=== PATIENT | male | born 1955 | race Caucasian/White ===

== ENCOUNTER → 2017-02-04 | Outpatient (CLI) | payer BC ==
[~2017-02-04] MED LIST: PERFLUTREN LIPID MICROSPHERE (DEFINITY) IV ONE
--- NOTE | 2017-02-04 15:56 | EXERCISE STRESS ECHO ---
*NOTICE TO RECEIVING REPUBLICAN AGENCY This information is strictly Confidential and protected under [place] law. [place] law prohibits you from making any further disclosure of this information unless further disclosure is expressly permitted by the written consent of the person to whom it pertains or is authorized by law. A general authorization for the release of medical or other information is not sufficient for this purpose. Hospital accepts no responsibility if the information is made available to any other person, INCLUDING THE PATIENT. Interpretation Summary * Name: EMMY ADDISON Study Date: 02/04/2017 01:50 PM BP: 154/93 mmHg * Patient Location: [facility] HR: 70 * : 1955 (M/d/yyyy) Gender: Male Height: 69 in * Age: 61 yrs Ethnicity: CA Weight: 200 lb * Ordering Physician: Raymundo Argueta * Referring Physician: Raymundo Argueta D.O. * Performed By: Radha Damon RDCS * * Reason For Study: DYSPNEA ON EXERTION * BSA: 2.1 m2 * -- Conclusions -- * 1. Normal stress echocardiogram at 12.3 METSand a peak heart rate of 85% maximum predicted * 2. No exercise-induced chest pain. * 3. No EKG changes. * 4. Baseline echocardiogram notes normal left ventricular systolic function and no significant valvular pathology. Procedure Details * A contrast injection of Definity was performed to improve assessment of LV function. * Contrast was injected into an intravenous site in the right arm. * One vial of Definity ultrasound contrast was diluted in normal saline to a total volume of 10 ml. A total of '4' ml of solution was administered during imaging. * Lot # [id number] of Definity utilized for procedure. * Expiration date MAR 07. * The attending nurse who injected the contrast agent was LALIT STONE RN. Left Ventricle * The left ventricle is normal in size. * There is borderline concentric left ventricular hypertrophy. * Ejection Fraction = 60-65%. * Left ventricular systolic function is normal. * Resting wall motion: Normal. Stress wall motion: Appropriate increase in Left ventricular systolic function and decrease in cavity size. No stress induced segmental wall motion abnormalities. Right Ventricle * The right ventricle is grossly normal size. * The right ventricular systolic function is normal as assessed by tricuspid annular plane systolic excursion (TAPSE) (normal >1.5 cm). Atria * The left atrium is mildly dilated. * Right atrial size is normal. * No ASD detected; PFO is not assessed. Mitral Valve * The mitral valve is normal in structure and function. * There is no mitral valve stenosis. * Significant mitral regurgitation is absent. Tricuspid Valve * The tricuspid valve is not well visualized, but is grossly normal. * There is no tricuspid stenosis. * Significant tricuspid regurgitation is absent. Aortic Valve * The aortic valve is normal in structure and function. * No hemodynamically significant valvular aortic stenosis. * There is no significant aortic regurgitation. Pulmonic Valve * The pulmonary valve is not well seen, but the Doppler examination is normal without significant regurgitation or stenosis. Great Vessels * The aortic root is normal size. * The pulmonary is not well visualized. Pericardium * There is no pericardial effusion. Stress Parameters * The baseline ECG displays normal sinus rhythm. * Stress ECG: No ST changes. No arrhythmias. * Maximum heart rate achieved was 138 bpm. * Maximum heart rate was 85 % of maximum age-predicted heart rate. * Maximum exercise MET level achieved was '12.3' METS * Total exercise time was '10 min 22 seconds' * Normal blood pressure response to exercise. * Exercise was terminated due to 'fatigue' * The patient exhibited fatigue during exercise. MMode 2D Measurements and Calculations IVSd 1.1 cm IVSs 1.6 cm LVIDd 4.6 cm LVIDs 3.0 cm LVPWd 1.7 cm LVPWs 1.7 cm IVS/LVPW 0.63 FS 34.3 % EDV(Teich) 96.8 ml ESV(Teich) 35.4 ml EF(Teich) 63.5 % EDV(cubed) 96.6 ml ESV(cubed) 27.4 ml EF(cubed) 71.7 % % IVS thick 50.7 % % LVPW thick -3.18 % LV mass(C)d 256.9 grams LV mass(C)dI 124.4 grams/m\S\2 LV mass(C)s 187.6 grams LV mass(C)sI 90.8 grams/m\S\2 SV(Teich) 61.4 ml SI(Teich) 29.7 ml/m\S\2 SV(cubed) 69.3 ml SI(cubed) 33.5 ml/m\S\2 Ao root diam 3.2 cm Ao root area 8.0 cm\S\2 LVAd ap4 33.7 cm\S\2 LVLd ap4 8.9 cm EDV(MOD-sp4) 105.7 ml EDV(sp4-el) 108.3 ml LVAs ap4 21.2 cm\S\2 LVLs ap4 7.9 cm ESV(MOD-sp4) 49.6 ml ESV(sp4-el) 48.1 ml EF(MOD-sp4) 53.0 % EF(sp4-el) 55.6 % LVAd ap2 33.0 cm\S\2 LVLd ap2 9.0 cm EDV(MOD-sp2) 100.6 ml EDV(sp2-el) 102.2 ml LVAs ap2 18.5 cm\S\2 LVLs ap2 7.5 cm ESV(MOD-sp2) 38.1 ml ESV(sp2-el) 38.5 ml EF(MOD-sp2) 62.1 % EF(sp2-el) 62.3 % LVLd %diff 1.5 % EDV(MOD-bp) 103.9 ml LVLs %diff -5.58 % ESV(MOD-bp) 44.6 ml EF(MOD-bp) 57.1 % SV(MOD-sp4) 56.0 ml SI(MOD-sp4) 27.1 ml/m\S\2 SV(MOD-sp2) 62.5 ml SI(MOD-sp2) 30.3 ml/m\S\2 SV(MOD-bp) 59.3 ml SI(MOD-bp) 28.7 ml/m\S\2 SV(sp4-el) 60.3 ml SI(sp4-el) 29.2 ml/m\S\2 SV(sp2-el) 63.7 ml SI(sp2-el) 30.8 ml/m\S\2 Doppler Measurements and Calculations Ao V2 max 152.0 cm/sec Ao max PG 9.2 mmHg Ao max PG (full) 4.6 mmHg LV V1 max PG 4.6 mmHg LV V1 max 107.7 cm/sec
== END | disposition home or self-care (01) ==
LOC: C.CPL 13:40
DX: R06.09 Other forms of dyspnea (principal); R01.1 Cardiac murmur, unspecified; I95.1 Orthostatic hypotension; Z82.49 Family history of ischemic heart disease and other diseases of the circulatory system